=== PATIENT | male | born 1940 | race Caucasian/White ===

== ENCOUNTER 2016-08-12 11:41 | Emergency (ER) | payer OTHER ==
--- NOTE | 2016-08-12 12:13 | DX ---
Right Ankle 3 Views History: Pain after slipping on ice. Comparison: None available. Findings: Trimalleolar ankle fracture is present. There is an oblique fracture of the distal fibula w ith minimal lateral displacement. A minimally displaced avulsion fracture of the medial malleolus is noted. There is a coronally oriented minimally displaced posterior malleolar fracture. There is widen ing of the medial ankle mortise. The talar dome appears intact. A moderate joint effusion is present. Calcaneal spurring is present at the Achilles insertion and plantar aponeurosis. Atherosclerosis is present. Impression: Trimalleolar fracture with widening of the medial ankle mortise.
--- NOTE | 2016-08-12 12:28 | EDPHY ---
H & P Stated Complaint: Fall on Ice/Ankle Injury Time Seen by Provider: 08/12/16 11:44 HPI/ROS: CHIEF COMPLAINT: right ankle pain HISTORY OF PRESENT ILLNESS: 75-year-old male presents to the emergency department by ambulance after a slip on ice just prior to arrival. Patient had immediate pain. He denies head strike, neck pain, loss of consciousness, any other complaints. He denies numbness or tingling in this foot, no previous injuries to this ankle. He denies knee pain. REVIEW OF SYSTEMS: A comprehensive 10 point review of systems is otherwise negative aside from elements mentioned in the history of present illness. Source: Patient Exam Limitations: No limitations - Personal History Current Tetanus/Diphtheria Vaccine: Yes Current Tetanus Diphtheria and Acellular Pertussis (TDAP): Yes - Medical/Surgical History Hx Asthma: No Hx Chronic Respiratory Disease: No Hx Diabetes: No Hx Cardiac Disease: Yes Hx Renal Disease: No Hx Cirrhosis: No Hx Alcoholism: No Hx HIV/AIDS: No Hx Splenectomy or Spleen Trauma: No Other PMH: PMH: Cardiac stent, BLADDER CAncer (finished mytomyocin tx this past ). PSH: right wrist plate 05/2015 - Social History Smoking Status: Never smoked - Physical Exam Exam: Physical Exam Gen: Alert and Oriented, NAD HEENT: PERRL, moist mucous membranes NECK: No C-spine tenderness CV: regular rate and regular rhythm PULM: CTAB, no wheezes ABDOMEN: soft, non tender to palpation, BS present BACK: No CVA tenderness NEURO: Neurologically grossly intact EXTREMITIES: Right ankle with diffuse swelling and tenderness to palpation to medial and lateral malleolus, no Achilles tenderness, no tenderness to base of 5th metatarsal, 2+ pedal pulses, sensation intact to light touch, cap refill less than 2 seconds SKIN: 2 small superficial abrasions to lateral medina and medial malleolus PSYCH: answers questions appropriately. Constitutional: Initial Vital Signs Temperature (C) 36.4 C 08/12/16 11:46 Heart Rate 72 08/12/16 11:46 Respiratory Rate 18 08/12/16 11:46 Blood Pressure 174/107 H 08/12/16 11:46 O2 Sat (%) 95 08/12/16 11:46 O2 Delivery Mode Room Air Allergies/Adverse Reactions: No Known Allergies Allergy (Verified 06/16/15 11:18) Home Medications: Medication Instructions Recorded Aspirin EC [Aspirin EC 325 mg 162.5 mg PO BID 06/27/14 (OTC)] Simvastatin [Zocor 20 mg] 20 mg PO HS 08/06/14 Cholecalciferol Vit D3 [Vitamin D] 1,000 units PO HS 06/16/15 Herbals/Supplements -Info Only 1 ea PO DAILY 06/16/15 Loratadine [Claritin 10 mg] 10 mg PO HS 06/16/15 Multivitamins [Tab-A-Danilo] 1 each PO MOWEFR 06/16/15 Hydrocodone/APAP 5325 [[place] 1 tab PO Q4H PRN #20 tab 08/12/16 5325] Medical Decision Making - Diagnostics Imaging: Right ankle x-ray independently reviewed by me- Impression: Trimalleolar fracture with widening of the medial ankle mortise. Dictated By: Brandon Stanley MD Procedures: A 3 way Ortho Glass splint was applied to right ankle. After application of the splint, I returned and re-examined the patient. The splint was adequately immobilizing the joint. The patients circulation and sensation were intact distal to the splint. ED Course/Re-evaluation: 75-year-old man brought in by ambulance after a slip and fall in the ice today. Patient has a trimalleolar right ankle fracture. Neurovascularly intact. No other injuries. This is nondisplaced. Patient is given 0.5 mg of Dilaudid IV for pain control. He has seen Dr. Estrada for a right wrist fracture that needed surgery last year and is requesting Dr. Estrada. 1245pm-Dr. Estrada has been paged, he is in surgery and will call when he is out. 3 way Ortho Glass splint placed. 150pm-I spoke with Dr. Estrada, he would like to see the patient in his office at 9:00 a.m. tomorrow NPO after midnight. Plan is for surgery tomorrow. Patient is aware and comfortable with this plan. Differential Diagnosis: Diagnosis considered but not limited to fracture, dislocation, sprain - Data Points Medications Given: Discontinued Medications Hydromorphone HCl (Dilaudid) 0.5 mg IVP EDNOW ONE Stop: 08/12/16 12:42 Last Admin: 08/12/16 12:53 Dose: 0.5 mg Ondansetron HCl (Zofran) 4 mg IVP EDNOW ONE Stop: 08/12/16 12:42 Last Admin: 08/12/16 12:53 Dose: 4 mg Departure - Departure Disposition: Home, Routine, Self-Care Clinical Impression: Trimalleolar fracture of ankle, closed Qualifiers: Encounter type: initial encounter Laterality: right Qualifier Code: (S82.851A) Displaced trimalleolar fracture of right lower leg, initial encounter for closed fracture Condition: Good Instructions: Ankle Fracture (ED) Additional Instructions: Rest, ice, elevate above the level of your heart as much as possible over the next several days. Take 600 mg of ibuprofen every 8 hours for 3 days with food , take [place] for severe pain. Return to the emergency department immediately for any numbness or tingling to your foot, pain that is not controlled, fevers, any other questions or concerns. Follow-up at Dr. Estrada office tomorrow morning at 9:00 a.m.. He will plan on doing surgery tomorrow. Do not eat or drink anything after midnight tonight. You may take your pain pill with a small sip of water if needed. Stay off of this foot and elevate until you go to his office. Referrals: Carlos Alberto Estrada MD [Medical Doctor] - As per Instructions Prescriptions: Hydrocodone/APAP 5/325 [[place] 5/325] 1 tab PO Q4H PRN #20 tab PRN Reason: Pain, Moderate
[2016-08-12] MEDS ORDERED: ONDANSETRON 4 MG/2 ML VIAL IVP ONE (12:41)
[2016-08-12] MEDS ORDERED: HYDROmorphONE/DILAUDID 1 MG/ML SYR IVP ONE (12:41)
[2016-08-12 15:50] VITALS: BP 145/93; PULSE 64; RESP 18; TEMP 98.4; O2SAT 94
== END 2016-08-12 15:50 | disposition home or self-care (01) ==
LOC: EDUNIT#
PROC: 2W3QX1Z Immobilization of Right Lower Leg using Splint (ICD-10-PCS; principal; 2016-08-12)
DX: S82.851A Displaced trimalleolar fracture of right lower leg, initial encounter for closed fracture (principal); Z79.82 Long term (current) use of aspirin; Z95.5 Presence of coronary angioplasty implant and graft; Z85.51 Personal history of malignant neoplasm of bladder; W00.0XXA Fall on same level due to ice and snow, initial encounter
CPT/HCPCS: 29515; 73610; 96374; 96375; 99284; J1170; J2405

== ENCOUNTER → 2017-10-09 | Outpatient (CLI) | payer OTHER ==
[~2017-10-09] MED LIST: IOPAMIDOL (ISOVUE-300) 100 ML BTL ONE
== END ==
LOC: CIMAGING 08:42
PROVIDERS: ATTEND Urology
DX: R31.29 Other microscopic hematuria (principal); K57.30 Diverticulosis of large intestine without perforation or abscess without bleeding; Z85.51 Personal history of malignant neoplasm of bladder
CPT/HCPCS: 74178; Q9967

== ENCOUNTER 2018-01-13 04:59 | Emergency (ER) | payer OTHER ==
--- NOTE | 2018-01-13 05:24 | EDPHY ---
H & P Stated Complaint: urinary retention Time Seen by Provider: 01/13/18 05:07 HPI/ROS: Chief Complaint: Can't urinate HPI: 77-year-old male with a history of bladder cancer is presenting with urinary retention. Patient states that he had a cauterization of a lesion on the [address] Elaine arevalo. He has been having some occasional intermittent blood in his urine, but has had worsening bleeding for the last 3 days. Yesterday he noticed some blood in the toilet after urinated. Yesterday evening he was unable to pass any urine. Does have a history of urinary retention in the past and has had Taylor catheters. He has been treated for bladder cancer very of the various modalities for the last 4 years. No fevers or chills. No nausea or vomiting. He is complaining of abdominal pain and the need to void. ROS: 10 point Review of Systems is negative except as noted in the HPI. PMH: Bladder cancer Social History: No smoking, no alcohol, no recreational drug use Family History: non-contributory Physical Exam: Gen: Awake, Alert, uncomfortable appearing HEENT: Nose: no rhinorrhea Eyes: PERRLA, EOMI Mouth: Moist mucosa Neck: Supple, no JVD Chest: nontender, lungs clear to auscultation Heart: S1, S2 normal, no murmur Abd: Soft, distended, Blair pelvic tenderness, distended bladder, no guarding Back: no CVA tenderness, no midline tenderness Ext: no edema, non-tender Skin: no rash Neuro: CN II-XII intact, Sensation grossly intact, Strength 5/5 in bilateral upper and lower extremities - Personal History Current Tetanus/Diphtheria Vaccine: Yes - Medical/Surgical History Hx Asthma: No Hx Chronic Respiratory Disease: No Hx Diabetes: No Hx Cardiac Disease: Yes Hx Renal Disease: No Hx Cirrhosis: No Hx Alcoholism: No Hx HIV/AIDS: No Hx Splenectomy or Spleen Trauma: No Other PMH: PMH: Cardiac stent, BLADDER CAncer (finished mytomyocin tx this past ). PSH: right wrist plate 05/2015 - Social History Smoking Status: Never smoked Constitutional: Initial Vital Signs Temperature (C) 36.4 C 01/13/18 04:59 Heart Rate 61 01/13/18 04:59 Respiratory Rate 18 01/13/18 04:59 Blood Pressure 168/91 H 01/13/18 04:59 O2 Sat (%) 95 01/13/18 04:59 O2 Delivery Mode Room Air Allergies/Adverse Reactions: No Known Allergies Allergy (Verified 06/16/15 11:18) Home Medications: Medication Instructions Recorded Aspirin EC [Aspirin EC 325 mg 162.5 mg PO BID 06/27/14 (OTC)] Simvastatin [Zocor 20 mg] 20 mg PO HS 08/06/14 Cholecalciferol Vit D3 [Vitamin D] 1,000 units PO HS 06/16/15 Herbals/Supplements -Info Only 1 ea PO DAILY 06/16/15 Loratadine [Claritin 10 mg] 10 mg PO HS 06/16/15 Multivitamins [Tab-A-Danilo] 1 each PO MOWEFR 06/16/15 Medical Decision Making ED Course/Re-evaluation: Irrigating Taylor catheter is placed. Patient had gross hematuria but no clots. - Data Points Laboratory Results: 01/13/18 05:40 Urine Color RED Urine Appearance MODERATELY TURBID Urine pH 6.0 (5.0-7.5) Ur Specific [place] 1.015 (1.002-1.030) Urine Protein 2+ H (NEGATIVE) Urine Ketones TRACE H (NEGATIVE) Urine Blood 3+ H (NEGATIVE) Urine Nitrate NEGATIVE (NEGATIVE) Urine Bilirubin NEGATIVE (NEGATIVE) Urine Urobilinogen NEGATIVE EU EU (0.2-1.0) Ur Leukocyte Esterase NEGATIVE (NEGATIVE) Urine RBC Pending Urine WBC Pending Ur Epithelial Cells Pending Urine Glucose NEGATIVE (NEGATIVE) Departure - Departure Disposition: Home, Routine, Self-Care Clinical Impression: Urinary retention Condition: Good Instructions: Urinary Retention in Men (ED), Taylor Catheter Placement and Care (ED) Additional Instructions: Follow up with your urologist in 2-3 days for further evaluation. Return to the emergency department if you're catheter stops draining, for increasing pain, fevers or chills, worsening bleeding, or any other concerns. Referrals: Darline Mcgill MD [Primary Care Provider] - As per Instructions Bruce Hathaway MD [Medical Doctor] - As per Instructions
[2018-01-13] MEDS ORDERED: LIDOCAINE 2% JELLY 20 ML (UROJECT) ONE (05:32)
[2018-01-13 07:16] VITALS: BP 116/75
== END 2018-01-13 07:00 | disposition home or self-care (01) ==
PROC: 0T9B70Z Drainage of Bladder with Drainage Device, Via Natural or Artificial Opening (ICD-10-PCS; principal; 2018-01-13)
DX: R33.9 Retention of urine, unspecified (principal); Z79.82 Long term (current) use of aspirin; Z85.51 Personal history of malignant neoplasm of bladder; Z95.5 Presence of coronary angioplasty implant and graft

== ENCOUNTER 2018-08-05 08:06 | Day surgery (SDC) | payer OTHER ==
[2018-08-05] MEDS ORDERED: LR 1,000 ML IV ONE (08:20)
[2018-08-05] MEDS ORDERED: LIDOCAINE 1% 2 ML INJ ID PRN (08:20)
[2018-08-05] MEDS ORDERED: ceFAZolin 2 GM/DEXTROSE 100 ML IV ONE (08:38)
--- NOTE | 2018-08-05 09:25 | PDANEPAE ---
ANE History of Present Illness here for TURBT ANE Past Medical History - Cardiovascular History Hx Hypertension: No Hx Arrhythmias: No Hx Coronary Artery / Peripheral Vascular Disease: Yes Hx CHF / Valvular Disease: No Hx Palpitations: No Cardiovascular History Comment: [place] 2007 - ANGIORAM W/STENT PLACEMENT NO FURTHER ISSUES - Pulmonary History Hx COPD: No Hx Asthma/Reactive Airway Disease: No Hx Recent Upper Respiratory Infection: No Hx Oxygen in Use at Home: No Hx Sleep Apnea: No Sleep Apnea Screening Result - Last Documented: Negative Pulmonary History Comment: URI 06/2018 - Neurologic History Hx Cerebrovascular Accident: No Hx Seizures: No Hx Dementia: No - Endocrine History Hx Diabetes: No Endocrine History Comment: MONITORED FOR BORDERLINE HIGH GLUCOSE LEVELS - NO MEDS - Renal History Hx Renal Disorders: Yes Renal History Comment: BLADDER CA. - Liver History Hx Hepatic Disorders: No - Neurological & Psychiatric Hx Hx Neurological and Psychiatric Disorders: No - Cancer History Hx Cancer: Yes Cancer History Comment: Bladder - Congenital Disorder History Hx Congenital Disorders: No - GI History Hx Gastrointestinal Disorders: No - Other Health History Other Health History: Permanent upper bridge. - Chronic Pain History Chronic Pain: No - Surgical History Prior Surgeries: RT ANKLE ORIF. RT WRIST ORIF. TUR BLADDER TUMOR X4 ANE Review of Systems Review of systems is: negative Review of Systems: - Exercise capacity Exercise capacity: >=4 METS ANE Patient History - Allergies Allergies/Adverse Reactions: No Known Allergies Allergy (Verified 06/16/15 11:18) - Home Medications Home medications: home medication list seen and reviewed Home Medications: Aspirin EC [Aspirin EC 325 mg (OTC)] 162.5 mg PO BID 06/27/14 [Last Taken ] Simvastatin [Zocor 20 mg] 20 mg PO HS 08/06/14 [Last Taken 08/04/18] Cholecalciferol Vit D3 [Vitamin D] 1,000 units PO HS 06/16/15 [Last Taken ] Herbals/Supplements -Info Only 1 ea PO DAILY 06/16/15 [Last Taken 07/28/18] Multivitamins [Tab-A-Danilo] 1 each PO MOWEFR 06/16/15 [Last Taken 07/28/18] Preservision Areds 2 Softgel DAILY 07/30/18 [Last Taken 07/28/18] Pseudoephedrine HCl 08/05/18 [Last Taken 08/05/18 06:30] - NPO status NPO Status: no food or drink >8 hours NPO Since - Liquids (Date): 08/05/18 NPO Since - Liquids (Time): 06:30 NPO Since - Solids (Date): 08/04/18 NPO Since - Solids (Time): 14:00 - Smoking Hx Smoking Status: Never smoked - Family Anes Hx Family Hx Anesthesia Complications: no ANE Labs/Vital Signs - Vital Signs Vital Signs: reviewed preoperatively; see RN documention for details Blood Pressure: 125/78 Heart Rate: 70 Respiratory Rate: 16 O2 Sat (%): 93 Height: 182.88 cm Weight: 72.575 kg ANE Physical Exam - Airway Neck exam: FROM Mallampati Score: Class 1 - Pulmonary Pulmonary: no respiratory distress - Cardiovascular Cardiovascular: regular rate and rhythym - ASA Status ASA Status: II ANE Anesthesia Plan Anesthesia Plan: GA w LMA
[2018-08-05] MEDS ORDERED: LR 500 ML IV PRN (09:31)
[2018-08-05] MEDS ORDERED: NALOXONE HCL 0.4 MG/ML INJ IVP PRN (09:31)
[2018-08-05] MEDS ORDERED: ACETAMINOPHEN 500 MG TAB PO PRN (09:31)
[2018-08-05] MEDS ORDERED: ONDANSETRON 4 MG/2 ML VIAL IVP PRN (09:31)
[2018-08-05] MEDS ORDERED: oxyCODONE IR 5 MG TAB PO PRN (09:31)
[2018-08-05] MEDS ORDERED: MIDAZOLAM 2 MG/2 ML VIAL IVP ONE (09:31)
[2018-08-05] MEDS ORDERED: NS 500 ML IV PRN (09:31)
[2018-08-05] MEDS ORDERED: ALBUTEROL 3 ML DEYVIAL IH PRN (09:31)
[2018-08-05] MEDS ORDERED: fentaNYL 100 MCG/2 ML INJ IVP PRN (09:31)
[2018-08-05] MEDS ORDERED: DEXAMETHASONE 4 MG/ML VIAL IVP PRN (09:31)
[2018-08-05] MEDS ORDERED: HYDROmorphONE/DILAUDID 2 MG/ML INJ IVP PRN (09:31)
[2018-08-05] MEDS ORDERED: HYDROCODONE/APAP 5/325 TAB PO PRN (09:31)
--- NOTE | 2018-08-05 09:31 | PDANEPAE ---
ANE History of Present Illness here for TURBT ANE Past Medical History - Cardiovascular History Hx Hypertension: No Hx Arrhythmias: No Hx Coronary Artery / Peripheral Vascular Disease: Yes Hx CHF / Valvular Disease: No Hx Palpitations: No Cardiovascular History Comment: [place] 2007 - ANGIORAM W/STENT PLACEMENT NO FURTHER ISSUES - Pulmonary History Hx COPD: No Hx Asthma/Reactive Airway Disease: No Hx Recent Upper Respiratory Infection: No Hx Oxygen in Use at Home: No Hx Sleep Apnea: No Sleep Apnea Screening Result - Last Documented: Negative Pulmonary History Comment: URI 06/2018 - Neurologic History Hx Cerebrovascular Accident: No Hx Seizures: No Hx Dementia: No - Endocrine History Hx Diabetes: No Endocrine History Comment: MONITORED FOR BORDERLINE HIGH GLUCOSE LEVELS - NO MEDS - Renal History Hx Renal Disorders: Yes Renal History Comment: BLADDER CA. - Liver History Hx Hepatic Disorders: No - Neurological & Psychiatric Hx Hx Neurological and Psychiatric Disorders: No - Cancer History Hx Cancer: Yes Cancer History Comment: Bladder - Congenital Disorder History Hx Congenital Disorders: No - GI History Hx Gastrointestinal Disorders: No - Other Health History Other Health History: Permanent upper bridge. - Chronic Pain History Chronic Pain: No - Surgical History Prior Surgeries: RT ANKLE ORIF. RT WRIST ORIF. TUR BLADDER TUMOR X4 ANE Review of Systems Review of systems is: negative Review of Systems: - Exercise capacity Exercise capacity: >=4 METS ANE Patient History - Allergies Allergies/Adverse Reactions: No Known Allergies Allergy (Verified 06/16/15 11:18) - Home Medications Home medications: home medication list seen and reviewed Home Medications: Aspirin EC [Aspirin EC 325 mg (OTC)] 162.5 mg PO BID 06/27/14 [Last Taken ] Simvastatin [Zocor 20 mg] 20 mg PO HS 08/06/14 [Last Taken 08/04/18] Cholecalciferol Vit D3 [Vitamin D] 1,000 units PO HS 06/16/15 [Last Taken ] Herbals/Supplements -Info Only 1 ea PO DAILY 06/16/15 [Last Taken 07/28/18] Multivitamins [Tab-A-Danilo] 1 each PO MOWEFR 06/16/15 [Last Taken 07/28/18] Preservision Areds 2 Softgel DAILY 07/30/18 [Last Taken 07/28/18] Pseudoephedrine HCl 08/05/18 [Last Taken 08/05/18 06:30] - NPO status NPO Status: no food or drink >8 hours NPO Since - Liquids (Date): 08/05/18 NPO Since - Liquids (Time): 06:30 NPO Since - Solids (Date): 08/04/18 NPO Since - Solids (Time): 14:00 - Smoking Hx Smoking Status: Never smoked - Family Anes Hx Family Hx Anesthesia Complications: no ANE Labs/Vital Signs - Vital Signs Vital Signs: reviewed preoperatively; see RN documention for details Blood Pressure: 125/78 Heart Rate: 70 Respiratory Rate: 16 O2 Sat (%): 93 Height: 182.88 cm Weight: 72.575 kg ANE Physical Exam - Airway Neck exam: FROM Mallampati Score: Class 1 Mouth exam: normal dental/mouth exam - Pulmonary Pulmonary: no respiratory distress - Cardiovascular Cardiovascular: regular rate and rhythym - ASA Status ASA Status: II ANE Anesthesia Plan Anesthesia Plan: GA w LMA
[2018-08-05] MEDS ORDERED: PROPOFOL/EMULSION 500 MG/50 ML BOTTLE IV ONE (10:15)
--- NOTE | 2018-08-05 10:21 | PDHPUP ---
History & Physical Update H&P update statement: This history and physical update is based on an assessment of the patient which was completed after admission or registration (within 24 hours), but prior to the surgery/procedure. H&P update: H&P reviewed & patient examined, no change in patient's condition since H&P completed
[2018-08-05] MEDS ORDERED: fentaNYL 100 MCG/2 ML INJ ONE (10:24)
[2018-08-05] MEDS ORDERED: DEXAMETHASONE 4 MG/ML VIAL ONE (10:38)
[2018-08-05] MEDS ORDERED: ONDANSETRON 4 MG/2 ML VIAL ONE (10:38)
[2018-08-05] MEDS ORDERED: OPIUM/BELLADONNA ALKALO SUPP PR ONE (11:03)
[2018-08-05] MEDS ORDERED: PROPOFOL 200 MG/20 ML VIAL ONE ×2 (11:21→11:43)
[2018-08-05] MEDS ORDERED: LIDOCAINE 2% JELLY 20 ML (UROJECT) ONE (11:52)
--- NOTE | 2018-08-05 12:07 | POSTOPPROG ---
Post Op Note Date of Operation: 08/05/18 Surgeon: Mikaela Segovia Anesthesiologist: Ishan Anesthesia: GET(General Endotracheal) Pre-op Diagnosis: recurrent bladder tumor, hx CIS and BCG Post-op Diagnosis: same Indication: recurrent bladder tumor, hx CIS and BCG Procedure: cysto, bladder bx, TURBT large Findings: low lying papillary tumor and large areas of erythema c/w recurrent tumor Inf/Abcess present in the surg proc area at time of surgery?: No Complications: none pt tolerated procedure well Drains: Other (alba)
--- NOTE | 2018-08-05 12:17 | POSTANESTH ---
Post Anesthetic Evaluation Cardiovascular Status: Normal, Stable Respiratory Status: Normal, Stable Level of Consciousness/Mental Status: Moderately Sleepy Pain Control: Adequate, Prn Tx Ordered Nausea/Vomiting Control: Adequate, Prn Tx Ordered Complications Possibly Related to Anesthesia: None Noted
[2018-08-05 13:30] VITALS: BP 116/71
--- NOTE | 2018-08-06 09:14 | GOP ---
DATE OF OPERATION: 08/05/2018 SURGEON: Mikaela Segovia MD ANESTHESIA: General. ANESTHESIOLOGIST: Jared Olmstead MD PREOPERATIVE DIAGNOSIS: Recurrent bladder tumor, history of carcinoma in situ and history of inducti on BCG and mitomycin. POSTOPERATIVE DIAGNOSIS: Recurrent bladder tumor, history of carcinoma in situ and history of induct ion BCG and mitomycin, large bladder tumor, greater than 5 cm was resected. PROCEDURE PERFORMED: Cystoscopy, cold cup biopsy of bladder lesions and transurethral resection of b ladder tumor. FINDINGS: Posterior bladder with papillary appearing low-lying carpet tumor and surrounding areas of erythema that were worrisome for carcinoma in situ. The area that was resected was large. INDICATIONS: The patient underwent a surveillance cystoscopy after induction course of BCG and he wa s found to have recurrent low-lying carpet-like tumor plus large areas of erythema. He did get a cyt ology that was positive for malignancy and recommended management was resection of abnormal areas. DESCRIPTION OF PROCEDURE: The patient was taken back to the cystoscopy suite and placed on the cysto scopy table in the supine position. General anesthesia induced without complication. Time-out perfo rmed and core measures satisfied including placement of a Rissa Hugger, SCDs and administration of Anc ef antibiotics. He was brought to the end of the table and placed in a dorsal lithotomy position. A ll pressure points padded. Genitalia draped and prepped in the standard surgical fashion with Betadi ne. A rigid cystoscope cannulated the urethral meatus. 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 Once in the bladder, I did pancystoscopy with a 70 and 30-degree lens. I did find the abnormal areas in the posterior bladder that was papillary carpet-like and several large areas of er ythema in the posterior bladder and just posterior to the trigone. The right ureteral orifice was ea sily seen and appeared normal. The left ureteral orifice was on trigone ridge and was it difficult t o see with a 30 and even a 70 degree lens. With the resectoscope in with the loop, I was able to man ipulate the area with a loop and see the ureteral orifice easily. There were several areas of prior resection noted in the bladder, especially at the left posterior section of the bladder. I then asse mbled the resectoscope and with a 26-Monegasque obturator, advanced that with direct vision into the blad rajesh and then used a cold cup biopsy forceps to cold cup biopsy several abnormal areas, including the papillary lesion area, as I did not want any cautery artifact and I do feel I got deep enough samples for muscles being simple. I sent probably 7 of these biopsies from around the bladder and abnormal areas. After I did this, I removed the cold cup biopsy forceps from the resectoscope and then some o f the loop and brought the loop in and then did resect a large portion of the bladder that I did feel was consistent with CIS. I also made sure I resected around the papillary area very well and then f ulgurated several centimeters of the bladder that was erythematous. The bladder probably was about a 3rd covered in abnormal tumor, but the dome and the lateral pastor did appear without abnormal tissue , it was really this posterior and just past the trigone that was very abnormal and also around old s car areas was also very hypervascular and more abnormal. After I was finished with the resectoscope and the loop, I do feel that I resected nearly all of the abnormal tumor and fulgurated several areas that were suspicious. I sent all the bladder pieces for pathology separately from the cold cup biop sy forceps pieces and used an [employer] evacuator also for gathering the tumor from the bladder. Hemosta sis was excellent at the end. I used cautery liberally and did not come anywhere near the ureteral o rifices with the resection and at this point, I felt the procedure was completed and with the resecto scope, placed an 18-Monegasque Taylor catheter without difficulty with return of clear urine. I then also placed lidocaine jelly and belladonna opium suppository. He was awoken from anesthesia and transfer red to PACU in good condition. COMPLICATIONS: None. DRAINS: Taylor catheter. /[id number]/MODL
== END 2018-08-05 13:49 | disposition home or self-care (01) ==
LOC: FSGY 08:06
PROVIDERS: ATTEND Urology
PROC: 0TBB8ZX Excision of Bladder, Via Natural or Artificial Opening Endoscopic, Diagnostic (ICD-10-PCS; principal; 2018-08-05 10:25)
DX: D09.0 Carcinoma in situ of bladder (principal); Z95.5 Presence of coronary angioplasty implant and graft; I25.2 Old myocardial infarction
CPT/HCPCS: 52204; 52234; C1758; C1769; J0690; J1100; J2250; J2405; J2704; J3010

== ENCOUNTER 2018-08-10 03:42 | Emergency (ER) | payer OTHER ==
--- NOTE | 2018-08-10 03:52 | EDPHY ---
H & P Stated Complaint: cath removed yesterday now having difficulty urinating and urinating blood Time Seen by Provider: 08/10/18 03:52 HPI/ROS: HPI CHIEF COMPLAINT: Urinary retention passing blood clots. HISTORY OF PRESENT ILLNESS: Patient is a very pleasant 77-year-old male, followed by Dr. Honeycutt with Urology, recently had a tumor resection, and biopsy, now presents emergency room with unable to urinate and passing blood clots. Denies any significant abdominal pain, denies back pain, denies fever, denies chest pain or shortness of breath. Patient is Taylor catheter after surgery removed yesterday at 2:00 p.m.. Patient is not on any blood thinners. Past Medical History: Bladder tumor Past Surgical History: Bladder tumor resection Social History: Denies drugs alcohol tobacco. Retired. Family History: Noncontributory ROS REVIEW OF SYSTEMS: 10 Systems were reviewed and negative with the exception of the elements mentioned in the history of present illness. Exam Constitutional appears well nontoxic no acute distress triage nursing summary reviewed, vital signs reviewed, awake/alert. Eyes normal conjunctivae and sclera, EOMI, PERRLA. HENT normal inspection, atraumatic, moist mucus membranes, no epistaxis, neck supple/ no meningismus, no raccoon eyes. Respiratory clear to auscultation bilaterally, normal breath sounds, no respiratory distress, no wheezing. Cardiovascular rate normal, regular rhythm, no murmur, no edema, distal pulses normal. Gastrointestinal nontender abdomen, no significant distention on exam, soft, non-tender, no rebound, no guarding, normal bowel sounds, no distension, no pulsatile mass. Genitourinary no CVA tenderness. Musculoskeletal no midline vertebral tenderness, full range of motion, no calf swelling, no tenderness of extremities, no meningismus, good pulses, neurovascularly intact. Skin pink, warm, & dry, no rash, skin atraumatic. Neurologic awake, alert and oriented x 3, AAOx3, moves all 4 extremities equally, motor intact, sensory intact, CN II-XII intact, normal cerebellar, normal vision, normal speech. Psychiatric normal mood/affect. Heme/Lymph/Immune no lymphadenopathy. Differential Diagnosis: Includes but is not limited to in a particular order urinary retention, urinary outflow obstruction, hematuria, UTI, cystitis bleeding status post surgery Medical Decision Making: Plan for this patient bladder scan, place new Taylor catheter, irrigate bladder out. Send UA for analysis Plan will be for Taylor catheter and discharged home with follow-up with urology. Re-evaluation: Urinalysis nitrite positive. Given recent instrumentation, Taylor catheter will send for urine culture patient be started on Keflex. Keflex take-home pack. Patient updated about testing resulted urinalysis. Patient agrees for discharge. He would like to go home. Taylor in place with blood tinged urine. Urine culture ordered. Recommend he calls his urologist today. Keflex 1st dose given in emergency room as well as Keflex take-home pack and Keflex prescription. He understands return emergency room if develops worsening symptoms includes vomiting, fever, back pain, not doing well. Source: Patient - Personal History Current Tetanus/Diphtheria Vaccine: Yes Current Tetanus Diphtheria and Acellular Pertussis (TDAP): Yes Tetanus Vaccine Date: 2017 - Medical/Surgical History Hx Asthma: No Hx Chronic Respiratory Disease: No Hx Diabetes: No Hx Cardiac Disease: Yes Hx Renal Disease: No Hx Cirrhosis: No Hx Alcoholism: No Hx HIV/AIDS: No Hx Splenectomy or Spleen Trauma: No Other PMH: PMH: Cardiac stent, BLADDER CAncer (finished mytomyocin tx this past ) bladder tumor removed. PSH: right wrist plate 05/2015, right ankle surgery - Social History Smoking Status: Never smoked Constitutional: Initial Vital Signs Temperature (C) 36.5 C 08/10/18 03:45 Heart Rate 68 08/10/18 03:45 Respiratory Rate 16 08/10/18 03:45 Blood Pressure 155/95 H 08/10/18 03:45 O2 Sat (%) 94 08/10/18 03:45 O2 Delivery Mode Room Air Allergies/Adverse Reactions: No Known Allergies Allergy (Verified 08/10/18 03:48) Home Medications: Medication Instructions Recorded Simvastatin [Zocor 20 mg] 20 mg PO HS 08/06/14 Cholecalciferol Vit D3 [Vitamin D3 1,000 units PO HS 06/16/15 (*)] Herbals/Supplements -Info Only 1 ea PO DAILY 06/16/15 Multivitamins [Multivitamin (*)] 1 each PO MOWEFR 06/16/15 Preservision Areds 2 Softgel DAILY 07/30/18 Acetaminophen [Tylenol ES 500 mg 500 mg PO Q6HRS PRN tab 08/05/18 (*)] Albuterol [Proventil Neb] 3 ml IH Q10M PRN deyvial 08/05/18 Aspirin EC [Aspirin EC 325 mg (*)] 162.5 mg PO BID #1 tab 08/05/18 Hydrocodone/APAP 5/325 [[place] 1 - 2 tab PO Q4HRS PRN tab 08/05/18 5/325 (*)] Phenazopyridine HCl [Pyridium] 200 mg PO Q8 PRN #21 tablet 08/05/18 Pseudoephedrine HCl 08/05/18 Sennosides/Docusate Sodium 1 each PO BID PRN #30 tablet 08/05/18 [Senna-S Tablet] Medical Decision Making - Data Points Laboratory Results: 08/10/18 03:55 Urine Color YELLOW Urine Appearance MODERATELY TURBID Urine pH 6.0 (5.0-7.5) Ur Specific Mobile 1.010 (1.002-1.030) Urine Protein 2+ H (NEGATIVE) Urine Ketones TRACE H (NEGATIVE) Urine Blood 2+ H (NEGATIVE) Urine Nitrate POSITIVE H (NEGATIVE) Urine Bilirubin NEGATIVE (NEGATIVE) Urine Urobilinogen 2.0 EU H EU (0.2-1.0) Ur Leukocyte Esterase NEGATIVE (NEGATIVE) Urine RBC 50-182 /hpf H /hpf (0-3) Urine WBC 25-50 /hpf H /hpf (0-3) Ur Epithelial Cells NONE SEEN /lpf /lpf (NONE-1+) Urine Glucose NEGATIVE (NEGATIVE) Medications Given: Discontinued Medications Cephalexin (Keflex 500 Mg Prepack#4) 1 btl TAKEHOME EDNOW ONE PRN Reason: Protocol Stop: 08/10/18 04:21 Last Admin: 08/10/18 04:32 Dose: 1 btl Cephalexin HCl (Keflex) 500 mg PO EDNOW ONE PRN Reason: Protocol Stop: 08/10/18 04:21 Last Admin: 08/10/18 04:32 Dose: 500 mg Departure - Departure Disposition: Home, Routine, Self-Care Clinical Impression: Urinary outflow obstruction, Urinary tract infection Condition: Good Instructions: Cephalexin (By mouth), Urinary Retention in Men (ED), Urinary Tract Infection in Men (ED), Hematuria (ED) Additional Instructions: 1. Please follow up with Urology call their for an appointment today. 2. Tell him here in the emergency room have Taylor catheter placed for bloody urine. Referrals: Darline Mcgill MD [Primary Care Provider] - As per Instructions Mikaela Segovia MD [Medical Doctor] - As per Instructions
[2018-08-10] MEDS ORDERED: CEPHALEXIN 500 MG CAP PO ONE (04:20)
[2018-08-10] MEDS ORDERED: CEPHALEXIN 500MG PREPACK#4 BTL TAKEHOME ONE (04:20)
[2018-08-10 06:52] VITALS: BP 121/65
== END 2018-08-10 07:11 | disposition home or self-care (01) ==
DX: N13.9 Obstructive and reflux uropathy, unspecified (principal); N39.0 Urinary tract infection, site not specified; Z85.51 Personal history of malignant neoplasm of bladder

== ENCOUNTER 2018-08-18 20:32 | Observation (INO) | payer OTHER ==
[2018-08-18 21:25] LABS: PLATELET COUNT 297 10^3/uL (150-400)
[2018-08-18 21:33] LABS: INR 1.03 (0.83-1.16); PROTIME(PATIENT) 13.7 SEC (12.0-15.0)
--- NOTE | 2018-08-18 21:34 | EDPHY ---
H & P Stated Complaint: Bladder CA with sx on , return of bleeding and clots Time Seen by Provider: 08/18/18 20:58 HPI/ROS: CHIEF COMPLAINT: Gross hematuria HISTORY OF PRESENT ILLNESS: 77-year-old male with bladder carcinoma presents with gross hematuria. He underwent bladder tumor resection on 08/05/2018. The Taylor catheter was taken out 08/09/18. The following day, he developed gross hematuria and urinary retention and a Taylor catheter UA was replaced. The catheter was just removed 3 days ago. Tonight he developed moderate lower abdominal discomfort, difficulty urinating and has persistent hematuria. Concerned about urinary retention. REVIEW OF SYSTEMS: complete 10 point ROS reviewed and is negative except for the noted elements in the HPI - Personal History Current Tetanus/Diphtheria Vaccine: Yes Current Tetanus Diphtheria and Acellular Pertussis (TDAP): Yes Tetanus Vaccine Date: 2017 - Medical/Surgical History Hx Asthma: No Hx Chronic Respiratory Disease: No Hx Diabetes: No Hx Cardiac Disease: Yes Hx Renal Disease: No Hx Cirrhosis: No Hx Alcoholism: No Hx HIV/AIDS: No Hx Splenectomy or Spleen Trauma: No Other PMH: PMH: Cardiac stent, BLADDER CAncer (finished mytomyocin tx this past ) bladder tumor removed. PSH: right wrist plate 05/2015, right ankle surgery - Social History Smoking Status: Never smoked Additional Social History: - Physical Exam Exam: General Appearance: Alert, pleasant Eyes: Pupils equal and round, no conjunctival pallor ENT, Mouth: Mucous membranes moist Neck: Normal inspection Respiratory: Lungs are clear to auscultation Cardiovascular: Regular rate and rhythm Gastrointestinal: Abdomen is soft, suprapubic fullness and tenderness Neurological: A&O, nonfocal, normal gait Skin: Warm and dry Extremities: Normal inspection Psychiatric: Mood and affect normal Constitutional: Initial Vital Signs Temperature (C) 36.4 C 08/18/18 20:33 Heart Rate 73 08/18/18 20:33 Respiratory Rate 20 08/18/18 20:33 Blood Pressure 155/81 H 08/18/18 20:33 O2 Sat (%) 96 08/18/18 20:33 O2 Delivery Mode Room Air Allergies/Adverse Reactions: No Known Allergies Allergy (Verified 08/18/18 20:33) Home Medications: Medication Instructions Recorded Simvastatin [Zocor 20 mg] 20 mg PO HS 08/06/14 Cholecalciferol Vit D3 [Vitamin D3 1,000 units PO HS 06/16/15 (*)] Herbals/Supplements -Info Only 1 ea PO DAILY 06/16/15 Multivitamins [Multivitamin (*)] 1 each PO MOWEFR 06/16/15 Preservision Areds 2 Softgel DAILY 07/30/18 Acetaminophen [Tylenol ES 500 mg 500 mg PO Q6HRS PRN tab 08/05/18 (*)] Albuterol [Proventil Neb] 3 ml IH Q10M PRN deyvial 08/05/18 Aspirin EC [Aspirin EC 325 mg (*)] 162.5 mg PO BID #1 tab 08/05/18 Hydrocodone/APAP 5/325 [[place] 1 - 2 tab PO Q4HRS PRN tab 08/05/18 5/325 (*)] Phenazopyridine HCl [Pyridium] 200 mg PO Q8 PRN #21 tablet 08/05/18 Pseudoephedrine HCl 08/05/18 Sennosides/Docusate Sodium 1 each PO BID PRN #30 tablet 08/05/18 [Senna-S Tablet] Cephalexin [Keflex] 500 mg PO Q6H #28 cap 08/10/18 Medical Decision Making ED Course/Re-evaluation: Bladder scan revealed 800 mL of urine. A 3 way Taylor catheter was placed and the bladder was irrigated continuously. Dark red blood, no clots. Will admit for continuous bladder irrigation. Dr. Gillespie consulted and will see pt in am. Dr. Almaguer consulted and will admit the patient. Differential Diagnosis: Includes does not limited to severe anemia, hypotension, urinary tract infection , prostatitis. - Data Points Laboratory Results: Laboratory Results 08/18/18 21:12 08/18/18 21:12 08/18/18 08/18/18 08/18/18 21:12 21:12 21:12 WBC 7.27 10^3/uL 10^3/uL (3.80-9.50) RBC 5.07 10^6/uL 10^6/uL (4.40-6.38) Hgb 16.5 g/dL g/dL (13.7-17.5) Hct 48.6 % % (40.0-51.0) MCV 95.9 fL fL (81.5-99.8) MCH 32.5 pg pg (27.9-34.1) MCHC 34.0 g/dL g/dL (32.4-36.7) RDW 13.3 % % (11.5-15.2) Plt Count 297 10^3/uL 10^3/uL (150-400) MPV 8.6 fL L fL (8.7-11.7) Neut % (Auto) 47.8 % % (39.3-74.2) Lymph % (Auto) 37.1 % % (15.0-45.0) [place] % (Auto) 9.9 % % (4.5-13.0) Eos % (Auto) 4.1 % % (0.6-7.6) Baso % (Auto) 0.8 % % (0.3-1.7) Nucleat RBC Rel Count 0.0 % % (0.0-0.2) Absolute Neuts (auto) 3.47 10^3/uL 10^3/uL (1.70-6.50) Absolute Lymphs (auto) 2.70 10^3/uL 10^3/uL (1.00-3.00) Absolute Monos (auto) 0.72 10^3/uL 10^3/uL (0.30-0.80) Absolute Eos (auto) 0.30 10^3/uL 10^3/uL (0.03-0.40) Absolute Basos (auto) 0.06 10^3/uL 10^3/uL (0.02-0.10) Absolute Nucleated RBC 0.00 10^3/uL 10^3/uL (0-0.01) Immature Gran % 0.3 % % (0.0-1.1) Immature Gran # 0.02 10^3/uL 10^3/uL (0.00-0.10) PT 13.7 SEC SEC (12.0-15.0) INR 1.03 (0.83-1.16) APTT 24.2 SEC SEC (23.0-38.0) Sodium 133 mEq/L L mEq/L (135-145) Potassium 4.2 mEq/L mEq/L (3.5-5.2) Chloride 100 mEq/L mEq/L (97-110) Carbon Dioxide 26 mEq/l mEq/l (22-31) Anion Gap 7 mEq/L mEq/L (6-14) BUN 21 mg/dL mg/dL (7-23) Creatinine 0.8 mg/dL mg/dL (0.7-1.3) Estimated GFR > 60 Glucose 92 mg/dL mg/dL (70-100) Calcium 9.2 mg/dL mg/dL (8.5-10.4) Medications Given: Discontinued Medications Lidocaine (Uroject Lidocaine 2% Jelly) 20 ml UR EDNOW ONE Stop: 08/18/18 21:42 Last Admin: 08/18/18 22:00 Dose: 20 ml Departure - Departure Disposition: [facility] Inpatient Acute Clinical Impression: Gross hematuria Condition: Good Referrals: Darline Mcgill MD [Primary Care Provider] - As per Instructions
[2018-08-18] MEDS ORDERED: LIDOCAINE 2% JELLY 20 ML (UROJECT) ONE (21:40)
[2018-08-18] MEDS ORDERED: LIDOCAINE 2% JELLY 20 ML (UROJECT) UR ONE (21:41)
[2018-08-18] MEDS ORDERED: ONDANSETRON 4 MG/2 ML VIAL IVP PRN (22:31)
[2018-08-18] MEDS ORDERED: ACETAMINOPHEN 325 MG TAB PO PRN (22:31)
[2018-08-18] MEDS ORDERED: ONDANSETRON DISINTEGRATING 4 MG TAB PO PRN (22:31)
--- NOTE | 2018-08-18 22:58 | PDGENHP ---
History and Physical - Chief Complaint Hematuria - History of Present Illness 77 yo M w/ hx of bladder CA and CAD presents with hematuria. The patient underwent resection of bladder tumor on 08/05. He had a Alba catheter in place until 08/16. Today he went for a walk and noted slight hematuria. This progressed throughout the day until he began to note clots and aure blood. At this point he came to the ED for evaluation. He denies pain, lightheadedness, or dizziness. He denies all other complaints. At the time of my evaluation he has continuous bladder irrigation ongoing. Of note, the patient restarted his daily aspirin yesterday, which he had been holding in the periprocedural setting. I discussed the case with ED physician Dr. Mar, she discussed with urologist Dr. Segovia who will evaluate the patient tomorrow morning. Records were reviewed and summarized above. History Information - Allergies/Home Medication List Allergies/Adverse Reactions: No Known Allergies Allergy (Verified 08/18/18 20:33) Home Medications: Simvastatin [Zocor 20 mg] 20 mg PO HS 08/06/14 [Last Taken 08/04/18] Cholecalciferol Vit D3 [Vitamin D3 (*)] 1,000 units PO HS 06/16/15 [Last Taken 07/28/18] Herbals/Supplements -Info Only 1 ea PO DAILY 06/16/15 [Last Taken 07/28/18] Multivitamins [Multivitamin (*)] 1 each PO MOWEFR 06/16/15 [Last Taken 07/28/18] Preservision Areds 2 Softgel DAILY 07/30/18 [Last Taken 07/28/18] Pseudoephedrine HCl 08/05/18 [Last Taken 08/05/18 06:30] I have personally reviewed and updated: family history, medical history - Past Medical History coronary artery disease, cancer (Bladder CA) - Surgical History Reports: cancer surgery (Bladder tumor resection 08/05/18), coronary stent - Family History Positive for: cancer - Social History Smoking Status: Never smoked Review of Systems Review of Systems: ROS: 10pt was reviewed & negative except for what was stated in HPI & below Physical Exam Physical Exam: Temp Pulse Resp BP Pulse Ox 36.4 C 75 17 138/78 H 93 08/18/18 20:33 08/18/18 22:30 08/18/18 22:30 08/18/18 22:30 08/18/18 22:30 Constitutional: no apparent distress, not in pain Eyes: PERRL, EOMI Ears, Nose, Mouth, Throat: moist mucous membranes, no oral mucosal ulcers Cardiovascular: regular rate and rhythym, no murmur, rub, or gallop Respiratory: no respiratory distress, no rales or rhonchi Gastrointestinal: normoactive bowel sounds, soft, non-tender abdomen Genitourinary: alba in urethra, other (Gross hematuria evident in catheter bag) Musculoskeletal: full muscle strength, no muscle tenderness Neurologic: AAOx3, CN II-XII Intact Psychiatric: interacting appropriately, not anxious Lab Data & Imaging Review 08/18/18 21:12 08/18/18 21:12 WBC 7.27 10^3/uL (3.80-9.50) 08/18/18 21:12 RBC 5.07 10^6/uL (4.40-6.38) 08/18/18 21:12 Hgb 16.5 g/dL (13.7-17.5) 08/18/18 21:12 Hct 48.6 % (40.0-51.0) 08/18/18 21:12 MCV 95.9 fL (81.5-99.8) 08/18/18 21:12 MCH 32.5 pg (27.9-34.1) 08/18/18 21:12 MCHC 34.0 g/dL (32.4-36.7) 08/18/18 21:12 RDW 13.3 % (11.5-15.2) 08/18/18 21:12 Plt Count 297 10^3/uL (150-400) 08/18/18 21:12 MPV 8.6 fL (8.7-11.7) L 08/18/18 21:12 Neut % (Auto) 47.8 % (39.3-74.2) 08/18/18 21:12 Lymph % (Auto) 37.1 % (15.0-45.0) 08/18/18 21:12 [place] % (Auto) 9.9 % (4.5-13.0) 08/18/18 21:12 Eos % (Auto) 4.1 % (0.6-7.6) 08/18/18 21:12 Baso % (Auto) 0.8 % (0.3-1.7) 08/18/18 21:12 Nucleat RBC Rel Count 0.0 % (0.0-0.2) 08/18/18 21:12 Absolute Neuts (auto) 3.47 10^3/uL (1.70-6.50) 08/18/18 21:12 Absolute Lymphs (auto) 2.70 10^3/uL (1.00-3.00) 08/18/18 21:12 Absolute Monos (auto) 0.72 10^3/uL (0.30-0.80) 08/18/18 21:12 Absolute Eos (auto) 0.30 10^3/uL (0.03-0.40) 08/18/18 21:12 Absolute Basos (auto) 0.06 10^3/uL (0.02-0.10) 08/18/18 21:12 Absolute Nucleated RBC 0.00 10^3/uL (0-0.01) 08/18/18 21:12 Immature Gran % 0.3 % (0.0-1.1) 08/18/18 21:12 Immature Gran # 0.02 10^3/uL (0.00-0.10) 08/18/18 21:12 PT 13.7 SEC (12.0-15.0) 08/18/18 21:12 INR 1.03 (0.83-1.16) 08/18/18 21:12 APTT 24.2 SEC (23.0-38.0) 08/18/18 21:12 Sodium 133 mEq/L (135-145) L 08/18/18 21:12 Potassium 4.2 mEq/L (3.5-5.2) 08/18/18 21:12 Chloride 100 mEq/L (97-110) 08/18/18 21:12 Carbon Dioxide 26 mEq/l (22-31) 08/18/18 21:12 Anion Gap 7 mEq/L (6-14) 08/18/18 21:12 BUN 21 mg/dL (7-23) 08/18/18 21:12 Creatinine 0.8 mg/dL (0.7-1.3) 08/18/18 21:12 Estimated GFR > 60 08/18/18 21:12 Glucose 92 mg/dL (70-100) 08/18/18 21:12 Calcium 9.2 mg/dL (8.5-10.4) 08/18/18 21:12 Assessment & Plan Assessment: 77 yo M w/ bladder CA s/p recent resection presents with hematuria. Plan: 1. Gross hematuria - In the setting of bladder tumor resection on 08/05. Of note , the patient restarted his daily aspirin on the day prior to admission. H/H stable and patient is asymptomatic at the moment. - Bladder irrigation started - Urology Dr. Segovia aware, will evaluate patient in the morning - Hold home ASA - Monitor CBC 2. Bladder CA - Carcinoma in situ since 2013; has failed mitomycin and BCG instillations. S/p bladder tumor resection on 08/05/[address] Segovia. - Urology consulted as above 3. CAD - With history of single stent placement about 8 years ago. This was in the setting of abnormal stress test, no hx of AR. He is very active at baseline and denies any recent anginal symptoms. - Ok to hold ASA while hematuria resolves - Continue other medications pending reconciliation Diet - Regular Code - Full Ppx - SCDs noting ongoing hematuria Dispo - Admit under observation status
[2018-08-19 05:34] LABS: PLATELET COUNT 260 10^3/uL (150-400)
--- NOTE | 2018-08-19 09:32 | ASMTCMCOM ---
CM Note CM Note Notes: Reviewied chart, pt admitted to hospital for hematuria post alba removal. He has a history of bladder ca but is otherwise independent in ADLs and active. He lives at home w/his , anticipate he will dc home independent when medically stable. CM available for any changes. DC Plan: Independent Date Signed: 08/19/2018 09:32 AM Electronically Signed By:Jasmin Brown RN
[2018-08-19 11:28] VITALS: BP 118/65
--- NOTE | 2018-08-19 12:37 | PDCONSULT ---
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 Gross hematuria again last night, admitted w CBI, nowCBI stopped and urine yellow. He does significant walking and hematuria restarted after walking yesterday. No other complaints. ROS 10ptROS performed, as stated in HPI, otherwise neg PMH/PSH/SH/FH as in HPI, otherwise noncontributory. Gen NADA&O CV regular Lungs Normal effort Abd soft Ext warm 18F3 way in place, urine clear. UA+nit, but only 3-5WBC. A/P Exchange [address] for [address] way 18F. Then OK to be dc w alba He will call for follow up for alba removal in 7-10d.
[2018-08-19] MEDS ORDERED: LIDOCAINE 2% JELLY 20 ML (UROJECT) UR ONE (12:38)
--- NOTE | 2018-08-19 12:46 | HOSPPROG ---
Hospitalist Progress Note Assessment/Plan: 77 yo M w/ bladder CA s/p recent resection presents with hematuria. *gross hematuria -in the setting of bladder tumor resection on 08/05 -CBI -urine is now clear -urology is fine for him to go home and f/u with her in the OP setting *Bladder CA -Carcinoma in situ since 2013; has failed mitomycin and BCG instillations -S/p bladder tumor resection on 08/05/[address] Segovia. *hld -statin *CAD -stent placed 8 years ago *plan: dc home, alba to be changed prior to dc Subjective: Aramis is fine, wants to leave right away. Objective: Vital Signs Temp Pulse Resp BP Pulse Ox 36.8 C 63 18 118/65 94 08/19/18 11:26 08/19/18 11:26 08/19/18 11:26 08/19/18 11:26 08/19/18 11:26 Laboratory Results 08/19/18 04:38 08/19/18 04:38 08/18/18 08/19/18 08/20/18 05:59 05:59 05:59 Intake Total 400 650 Output Total 3400 500 Balance -3000 150 PT 13.7 SEC (12.0-15.0) 08/18/18 21:12 INR 1.03 (0.83-1.16) 08/18/18 21:12 - Physical Exam Constitutional: no apparent distress, appears nourished, not in pain Eyes: PERRL Ears, Nose, Mouth, Throat: hearing normal Respiratory: no respiratory distress Gastrointestinal: normoactive bowel sounds Genitourinary: alba in urethra (urine yellow) Skin: warm Musculoskeletal: full muscle strength Neurologic: AAOx3 Psychiatric: interacting appropriately ICD10 Worksheet Patient Problems: Problems Problem Status Onset Clot retention of urine Acute Gross hematuria Acute Postoperative retention of urine Acute
--- NOTE | 2018-08-19 14:20 | GDS ---
[f rep st] DISCHARGE SUMMARY DISCHARGE DIAGNOSES: 1. Gross hematuria. 2. Bladder cancer. 3. Hyperlipidemia. 4. Coronary artery disease. CONSULTATION: Dr. Mikaela Segovia. HISTORY OF PRESENT ILLNESS: Briefly, the patient is a very nice 77-year-old male who presented with gross hematuria and was admitted with continuous bladder infusion. His urine cleared up. Of note, taj hidalgo has a history of bladder cancer, status post resection. He is feeling markedly better. He will fo llow up with Dr. Segovia in the outpatient setting. HOSPITAL COURSE: 1. Gross hematuria. This is in the setting of bladder tumor resection on 08/05. Urine is now clear . 2. Bladder cancer. He has carcinoma in-situ since 2013. He has failed mitomycin and BCG instillati ons. He had a resection on August 05, 2018, by Dr. Segovia. 3. Hyperlipidemia, on statin. 4. Coronary artery disease. Stent was placed greater than 8 years ago. DISCHARGE CONDITION: Stable. Blood pressure is 118/65, heart rate is 63, respiratory rate is 18, O2 sats room air 94%, temperature is 36.8 Celsius. MEDICATIONS AT DISCHARGE: Please see the EMR. DISCHARGE INSTRUCTIONS: 1. Activity per Urology and can restart aspirin when okay with urologist. 2. If he develops ongoing clots or bloody red urine, to return to the ER. /[id number]/MODL
[2018-08-19] MEDS ORDERED: ATORVASTATIN CALCIUM 10 MG TAB PO SCH (21:00)
== END 2018-08-19 15:13 | disposition home or self-care (01) ==
LOC: F1N 23:12
PROVIDERS: ADMIT Student in an Organized Health Care Education/Training Program; ATTEND Family Medicine
PROC: 4A0D7LZ Measurement of Urinary Volume, Via Natural or Artificial Opening (ICD-10-PCS; principal; 2018-08-18)
DX: R31.0 Gross hematuria (principal); D09.0 Carcinoma in situ of bladder; E78.5 Hyperlipidemia, unspecified; I25.10 Atherosclerotic heart disease of native coronary artery without angina pectoris; Z95.5 Presence of coronary angioplasty implant and graft
CPT/HCPCS: 51798; 99285; G0378

== ENCOUNTER 2018-09-18 00:37 | Emergency (ER) | payer OTHER | END 2018-09-18 03:08 | disposition home or self-care (01) ==

== ENCOUNTER → 2018-12-16 | Outpatient (CLI) | payer OTHER | LOC: FIMAGING 07:57 ==

== ENCOUNTER 2018-12-22 07:29 | Day surgery (SDC) | payer OTHER | END 2018-12-22 12:55 | disposition home or self-care (01) | LOC: FIMAGING 07:29 ==

== ENCOUNTER 2019-01-10 07:16 | Day surgery (SDC) | payer OTHER | END 2019-01-10 11:25 | disposition home or self-care (01) | LOC: FIMAGING 07:16 ==